=== PATIENT | female | born 1990 | race Caucasian/White ===

== ENCOUNTER 2018-01-22 19:30 | Emergency (ER) | payer OTHER ==
[~2018-01-22] VITALS: Ht 165.1 cm; Wt 104.3 kg
[2018-01-22] MEDS ORDERED: NAPROSYN500 MG PO (19:35)
[2018-01-22] MEDS ORDERED: NORCO 5-325 TA1 EACH PO (20:12)
== END 2018-01-22 21:00 | disposition home or self-care (01) ==
LOC: ED 19:30
DX: S82.832A Other fracture of upper and lower end of left fibula, initial encounter for closed fracture (principal); Z88.0 Allergy status to penicillin; W17.2XXA Fall into hole, initial encounter; Y93.89 Activity, other specified; Y92.89 Other specified places as the place of occurrence of the external cause; Y99.8 Other external cause status

== ENCOUNTER 2018-03-20 14:23 | Emergency (ER) | payer OTHER ==
[~2018-03-20] VITALS: Ht 167.6 cm; Wt 104.3 kg
[~2018-03-20 14:23] MED LIST: NAPROSYN500 MG PO; NORCO 5-325 TA1 EACH PO
[2018-03-20] MEDS ORDERED: SEPTDS PO ×2 (14:52→14:53)
[2018-03-20] MEDS ORDERED: NAPROSYN500 MG PO ×2 (14:53→14:56)
[2018-03-20] MEDS ORDERED: CLINDAMYCIN HC300 MG PO (15:16)
== END 2018-03-20 15:10 | disposition home or self-care (01) ==
LOC: ED 14:23
DX: L02.412 Cutaneous abscess of left axilla (principal); Z86.14 Personal history of Methicillin resistant Staphylococcus aureus infection; Z88.0 Allergy status to penicillin

== ENCOUNTER 2019-03-31 11:36 | Emergency (ER) | payer OTHER ==
[~2019-03-31] VITALS: Ht 167.6 cm; Wt 127.0 kg
[~2019-03-31 11:36] MED LIST changes: +CLINDAMYCIN HC300 MG PO; +FLONASE ALLERG9.9 ML NAS; +SEPTDS PO; +ZYRTEC10 MG PO
== END 2019-03-31 13:10 | disposition home or self-care (01) ==
LOC: ED 11:36
DX: S93.401A Sprain of unspecified ligament of right ankle, initial encounter (principal); R60.0 Localized edema; Z88.0 Allergy status to penicillin; X58.XXXA Exposure to other specified factors, initial encounter; Y93.89 Activity, other specified; Y92.89 Other specified places as the place of occurrence of the external cause; Y99.0 Civilian activity done for income or pay

== ENCOUNTER 2019-12-01 16:16 | Emergency (ER) | payer OTHER ==
[~2019-12-01] VITALS: Ht 165.1 cm; Wt 136.1 kg
[2019-12-01] MEDS ORDERED: TYLENOL325 M1 PO (16:45)
== END 2019-12-01 16:46 | disposition home or self-care (01) ==
LOC: ED 16:16
DX: J06.9 Acute upper respiratory infection, unspecified (principal); Z88.8 Allergy status to other drugs, medicaments and biological substances; Z79.899 Other long term (current) drug therapy; Z79.2 Long term (current) use of antibiotics

== ENCOUNTER 2020-01-25 13:31 | Emergency (ER) | payer OTHER ==
[~2020-01-25] VITALS: Ht 167.6 cm; Wt 136.1 kg
[~2020-01-25 13:31] MED LIST changes: +TYLENOL325 M1 PO
[2020-01-25] MEDS ORDERED: NORCO 5-325 TA1 EACH PO (15:30)
== END 2020-01-25 16:16 | disposition home or self-care (01) ==
LOC: ED 13:31
DX: S92.001A Unspecified fracture of right calcaneus, initial encounter for closed fracture (principal); Z88.0 Allergy status to penicillin; Z79.899 Other long term (current) drug therapy; W10.9XXA Fall (on) (from) unspecified stairs and steps, initial encounter; Y93.89 Activity, other specified; Y92.89 Other specified places as the place of occurrence of the external cause; Y99.8 Other external cause status